=== PATIENT | female | born 1995 ===

== ENCOUNTER 2023-08-01 18:00 | Inpatient (IN) | payer BC ==
[2023-08-04] MEDS: Lactated Ringer's 1,000 ML IV SCH (12:40)
[2023-08-04 13:03] VITALS: BMI 33.9
[2023-08-04] MEDS: Misoprostol 100 MCG TAB VAG SCH (13:30)
[2023-08-04] MEDS ORDERED: Lidocaine 1% (PF) 30 ML VIAL SC PRN (13:31)
[2023-08-04] MEDS ORDERED: Ondansetron PF 4 MG/2 ML Vial IVP PRN ×3 (13:31→20:53)
[2023-08-04] MEDS ORDERED: fentaNYL 50 mcg/mL 1 mL Vial SLOW IVP PRN ×2 (13:31→20:53)
[2023-08-04] MEDS ORDERED: Ibuprofen 800 MG TAB PO PRN (13:31)
[2023-08-04] MEDS ORDERED: HYDROcodone/Acetaminophen 5/325 mg Tablet PO PRN ×2 (13:31)
[2023-08-04] MEDS ORDERED: Promethazine HCl 25 MG/ML VIAL IM PRN ×2 (13:31→20:53)
[2023-08-04] MEDS ORDERED: hydrALAZINE 20 MG/ML VIAL SLOW IVP PRN ×2 (13:31→23:22)
[2023-08-04] MEDS ORDERED: Oxytocin 30 units/NS 500 ML 500 ML IV SCH ×4 (13:45→23:22)
[2023-08-04 14:17] LABS: Hematocrit 35.6 % (34.9-44.5); Hemoglobin 12.1 g/dL (12.0-15.5); Mean Corpuscular Hemoglobin 26.4 pg (27.0-33.0); Mean Corpuscular Volume 77.6 fL (81.6-98.3); Mean Platelet Volume 11.3 fL (7.4-10.4); Platelet Count 209 10x3/uL (150-450); RBC Distribution Width 18.2 % (11.5-14.5); Red Blood Cell (RBC) Count 4.59 10x6/uL (3.90-5.03); White Blood Cell (WBC) Count 9.5 10x3/uL (3.5-10.5)
[2023-08-04 14:50] LABS: Syphilis Antibody Nonreactive (Nonreactive); Syphilis Antibody Index 0.04 S/CO (<1.00 Non-Reactive)
[2023-08-04 14:52] LABS: HBsAg Index 0.22 S/CO (0-0.99); Hep B Surf Ag - L&D Non-Reactive S/CO (NonReactive)
[2023-08-04] MEDS ORDERED: Famotidine/PF 20 mg/2ml Vial SLOW IVP PRN (19:39)
[2023-08-04] MEDS ORDERED: Bicitra 30 ML UDCUP PO PRN (19:39)
[2023-08-04] MEDS ORDERED: CEFAZOLIN 2 GM in Sodium Chloride 0.9% 100 ML IVPB SCH (19:45)
[2023-08-04] MEDS ORDERED: Naloxone HCl 0.4 mg/ml Vial IVP PRN ×2 (20:53)
[2023-08-04] MEDS ORDERED: Moisturizing Cream (Eucerin) 113 GM JAR TOP PRN (20:53)
[2023-08-04] MEDS ORDERED: diphenhydrAMINE 50 MG/ML VIAL IVP PRN (20:53)
[2023-08-04] MEDS ORDERED: Meperidine HCl/PF 25 MG (1 mL) VIAL SLOW IVP PRN (20:53)
[2023-08-04] MEDS ORDERED: Naloxone HCl 0.4 mg/ml Vial IV PRN (20:53)
[2023-08-04] MEDS ORDERED: HYDROmorphone 0.5 MG/0.5 ML SYRINGE SLOW IVP PRN (20:53)
[2023-08-04] MEDS ORDERED: Communication Order-Pharmacy FS SCH (21:00)
[2023-08-04] MEDS ORDERED: Lanolin Ointment 7 GM TUBE TOP PRN (23:22)
[2023-08-04] MEDS ORDERED: Bisacodyl 10 MG SUPP PR PRN (23:22)
[2023-08-04] MEDS ORDERED: Simethicone Chewable 80 MG TAB PO PRN (23:22)
[2023-08-04] MEDS: Misoprostol 100 MCG TAB ONE (23:27)
[2023-08-04] MEDS: Terbutaline Sulfate 1 MG/ML VIAL ONE (23:27)
[2023-08-04] MEDS: Azithromycin 500 MG VIAL ONE (23:28)
[2023-08-04] MEDS: Sodium Chloride 0.9% 200 ML ONE (23:28)
[2023-08-04] MEDS: CEFAZOLIN 2 GM VIAL ONE (23:28)
[2023-08-04] MEDS: fentaNYL/Ropivacaine Epidural 0 ML ONE (23:28)
[2023-08-04] MEDS: Hepatitis B Vaccine 10 MCG/0.5 ML SYR ONE (23:29)
[2023-08-04] MEDS: Erythromycin Base 0.5% Oint 1 GM TUBE ONE (23:29)
[2023-08-04] MEDS: Morphine PF 10 MG/10 ML VIAL ONE (23:31)
[2023-08-04] MEDS: Phytonadione Neonatal 1 MG/0.5 ML AMP ONE (23:31)
[2023-08-04] MEDS: Dexamethasone 4 mg/ml Vial ONE (23:31)
[2023-08-04] MEDS: Ketorolac Tromethamine 30 MG (1 mL) VIAL ONE (23:32)
[2023-08-04] MEDS: Oxytocin 10 UNITS/ML VIAL ONE ×2 (23:33)
[2023-08-04] MEDS: Ondansetron PF 4 MG/2 ML Vial ONE (23:33)
[2023-08-04] MEDS: Docusate 100 MG CAP PO SCH (23:34)
[2023-08-04] MEDS: Boostrix 0.5 ML (Tdap) VIAL (>/=7 yrs of age) IM ONE (23:34)
[2023-08-04] MEDS: Ferrous Sulfate 325 MG TAB PO SCH (23:34)
[2023-08-05] MEDS: Ondansetron PF 4 MG/2 ML Vial IVP PRN (00:35)
[2023-08-05 04:44] LABS: Hematocrit 34.8 % (34.9-44.5); Hemoglobin 11.6 g/dL (12.0-15.5); Mean Corpuscular HGB CONC 33.3 g/dL (32.0-36.0); Mean Corpuscular Hemoglobin 25.9 pg (27.0-33.0); Mean Corpuscular Volume 77.7 fL (81.6-98.3); Mean Platelet Volume 11.8 fL (7.4-10.4); Platelet Count 229 10x3/uL (150-450); Red Blood Cell (RBC) Count 4.48 10x6/uL (3.90-5.03); White Blood Cell (WBC) Count 18.7 10x3/uL (3.5-10.5)
[2023-08-05] MEDS: Ferrous Sulfate 325 MG TAB PO SCH (07:24)
[2023-08-05] MEDS ORDERED: HYDROcodone/Acetaminophen 5/325 mg Tablet PO PRN ×2 (09:00)
[2023-08-05] MEDS ORDERED: fentaNYL 50 mcg/mL 1 mL Vial SLOW IVP PRN (09:00)
[2023-08-05] MEDS: Prenatal Vitamin 1 TAB PO SCH (09:12)
[2023-08-05] MEDS: Docusate 100 MG CAP PO SCH (09:12)
[2023-08-05] MEDS: Ketorolac Tromethamine 30 MG (1 mL) VIAL IVP PRN (12:08)
[2023-08-05] MEDS: HYDROcodone/Acetaminophen 5/325 mg Tablet PO PRN (19:51)
[2023-08-06] MEDS: HYDROcodone/Acetaminophen 5/325 mg Tablet PO PRN (00:02)
[2023-08-06] MEDS ORDERED: Ibuprofen 800 MG TAB PO PRN (02:01)
[2023-08-06] MEDS: Ibuprofen 800 MG TAB PO SCH (05:52)
[2023-08-06 08:02] VITALS: BP 114/63; TEMP 98.3
== END 2023-08-06 15:52 | disposition home or self-care (01) | DRG 788 ==
LOC: CSHLD 08-04 11:34 → CSHPP 08-04 23:15
PROVIDERS: ADMIT Obstetrics & Gynecology; ATTEND Obstetrics & Gynecology
PROC: 10D00Z1 Extraction of Products of Conception, Low, Open Approach (ICD-10-PCS; principal; 2023-08-04)
DX: O76 Abnormality in fetal heart rate and rhythm complicating labor and delivery (principal); O48.0 Post-term pregnancy; O24.429 Gestational diabetes mellitus in childbirth, unspecified control; Z3A.40 40 weeks gestation of pregnancy; Z37.0 Single live birth
CPT/HCPCS: 51702; 85027; 86780; 86850; 86900; 86901; 87340; J1100; J1885; J2274; J2405; J2590; J7120